=== PATIENT | male | born 1945 | race Asian ===

== ENCOUNTER 2019-01-08 22:59 | Outpatient (CLI) | payer OTHER | END 2019-01-08 23:24 | disposition short-term general hospital (02) | LOC: AMB 22:59 | DX: M79.604 Pain in right leg (principal); W19.XXXA Unspecified fall, initial encounter | CPT/HCPCS: A0425; A0427 ==

== ENCOUNTER 2021-02-28 15:57 | Emergency (ER) | payer OTHER ==
[~2021-02-28] VITALS: Ht 182.9 cm; Wt 90.7 kg
[2021-02-28 16:43] LABS: PLATELET COUNT 466 K/uL (142-355)
[2021-02-28 16:52] LABS: POTASSIUM 5.1 mmol/L (3.6-5.2)
[2021-02-28 17:08] LABS: PARTIAL THROMBOPLASTIN TIME 27.8 SECONDS (24.5-33.6)
[2021-02-28 20:00] VITALS: BP 142/75; TEMP 100
== END 2021-02-28 20:00 | disposition short-term general hospital (02) ==
LOC: ED 15:57
PROVIDERS: Emergency Medicine
PROC: 0T9B70Z Drainage of Bladder with Drainage Device, Via Natural or Artificial Opening (ICD-10-PCS; principal; 2021-02-28)
DX: N17.8 Other acute kidney failure (principal); I21.4 Non-ST elevation (NSTEMI) myocardial infarction; M62.82 Rhabdomyolysis; E83.52 Hypercalcemia; Z11.52 Encounter for screening for COVID-19; W18.39XA Other fall on same level, initial encounter; Y92.89 Other specified places as the place of occurrence of the external cause
CPT/HCPCS: 51702; 80053; 81000; 82550; 83605; 83880; 84484; 85027; 85610; 85730; 87040; 87077; 87086; 87088; 87186; 87635; 93005; 96360; 96361; 96365; 96366; 99285; J1956; U0003

== ENCOUNTER 2021-04-05 12:22 | Emergency (ER) | payer OTHER ==
[~2021-04-05] VITALS: Ht 182.9 cm; Wt 90.7 kg
[2021-04-05 12:23] VITALS: BP 136/80; TEMP 98.3
[2021-04-05 13:25] LABS: PLATELET COUNT 362 K/uL (142-355)
[2021-04-05 13:48] LABS: POTASSIUM 4.5 mmol/L (3.6-5.2)
== END 2021-04-05 14:55 | disposition home or self-care (01) ==
LOC: ED 12:22
PROVIDERS: Hospitalist
DX: K59.09 Other constipation (principal); N39.0 Urinary tract infection, site not specified
CPT/HCPCS: 80053; 81000; 83690; 85027; 87077; 87086; 87088; 87186; 96372; 99283; J0696